=== PATIENT | female | born 1935 | race Caucasian/White ===

== ENCOUNTER → 2018-02-20 | Outpatient (CLI) | payer OTHER ==
[~2018-02-20] MED LIST: GADOBUTROL 10 ML VIAL IVP ONE
== END ==
LOC: FIMAGING 10:09
PROVIDERS: ATTEND Physician Assistant Medical
DX: G31.9 Degenerative disease of nervous system, unspecified (principal)
CPT/HCPCS: 70553; A9585; 82565-PO

== ENCOUNTER → 2018-08-20 | Outpatient (CLI) | payer OTHER | LOC: BMCIMAGING 11:13 ==